=== PATIENT | male | born 1960 | race Caucasian/White ===

== ENCOUNTER → 2019-04-15 | Outpatient (CLI) | payer OTHER ==
[2019-04-11 11:00] VITALS: BP 122/78
[~2019-04-15] MED LIST: CHOL10003 PO; HYDR-2761; HYDR28CR; LISI1TAB3 PO; LORA10CA PO; NORMAL SALINE IV ONE; SIMV20TA3 PO; SINCALIDE IV ONE
--- NOTE | 2019-04-15 10:29 | RAD ---
HEPATOBILIARY SCAN WITH GALLBLADDER EJECTION FRACTION Clinical indications: Abdominal pain. Pancreatitis. COMPARISON: TECHNIQUE: After IV infusion of 5.5 mCi of technetium 99m Choletec, anterior planar images of the upper abdomen were performed in sequential fashion and a time/activity curve was generated. 1.76 mcg of cholecystokinin was given intravenously and a gallbladder ejection fraction was measured and calculated. FINDINGS: Homogeneous uptake is seen throughout the liver. Radiotracer activity is seen within the gallbladder by 5 minutes. Radiotracer activity is seen within the duodenum by 45 minutes. Gallbladder ejection fraction is measured and calculated to be 91%. Normal is greater than 35%. IMPRESSION: Normal hepatobiliary scan with gallbladder ejection fraction of 91% Electronically signed by: Daniel Nash MD (04/15/2019 10:26 AM) [facility]
== END | disposition home or self-care (01) ==
LOC: US 07:14
PROVIDERS: ATTEND Internal Medicine Gastroenterology
DX: K85.90 Acute pancreatitis without necrosis or infection, unspecified (principal); R10.9 Unspecified abdominal pain; Z95.0 Presence of cardiac pacemaker
CPT/HCPCS: 78227; A9537; J2805

== ENCOUNTER 2019-04-18 10:57 | Inpatient (IN) | payer OTHER ==
[~2019-04-18] VITALS: Ht 175.3 cm; Wt 91.2 kg
[~2019-04-18 10:57] MED LIST changes: -NORMAL SALINE IV ONE; -SINCALIDE IV ONE
[2019-04-18] MEDS ORDERED: IV NORMAL SALINE 1000ML BAG 1,000 ML IV SCH (11:13)
[2019-04-18] MEDS ORDERED: FAMOTIDINE 20 MG/2 ML VIAL IVP ONE (11:15)
[2019-04-18] MEDS ORDERED: MORPHINE SULFATE 4 MG/ML VIAL. IV ONE (11:15)
[2019-04-18] MEDS ORDERED: ONDANSETRON PF 4 MG/2 ML VIAL. IV ONE (11:15)
[2019-04-18 11:26] LABS: BASO % 0 % (0-3); EOS # 0.1 x10^3/uL (0.0-0.7); EOS % 1 % (0-3); HEMATOCRIT 48.2 % (39.0-53.0); HEMOGLOBIN 16.3 g/dL (13.0-17.5); LYMPH # 3.2 x10^3/uL (1.0-4.8); LYMPH % 32 % (24-48); MEAN CORPUSCULAR HEMOGLOBIN 29 pg (25-35); MEAN CORPUSCULAR HGB CONC 34 g/dL (31-37); MEAN CORPUSCULAR VOLUME 87 fL (79-100); MONO % 10 % (0-9); NEUT # 5.7 x10^3/uL (1.8-7.7); NEUT % 57 % (31-73); PLATELET COUNT 183 x10^3/uL (140-400); RED BLOOD COUNT 5.55 x10^6/uL (4.30-5.70); RED CELL DISTRIBUTION WIDTH 13.9 % (11.5-14.5)
[2019-04-18 11:39] LABS: CALCIUM 10.6 mg/dL (8.5-10.1); CREATININE 1.6 mg/dL (0.7-1.3); GFR 44.2; POTASSIUM 3.9 mmol/L (3.5-5.1)
--- NOTE | 2019-04-18 11:44 | PHYS DOC ---
Past Medical History Past Medical History: High Cholesterol, Pancreatitis Past Surgical History: Other Additional Past Surgical Histo: bile duct surgery 11 years ago; neuroma left foot Alcohol Use: Rarely Drug Use: None Adult General Chief Complaint Chief Complaint: ABDOMINAL PAIN HPI HPI Patient is a 59 year old male who presents with states this morning he was up and doing things around the house when suddenly he got severe sharp upper abdominal pain that radiates all the way across his abdomen he rates it 10 out of 10. Patient states he vomited once. He has no known drug allergies but he does have a history of idiopathic pancreatitis. Patient states he did not take any medications for his pain before coming. Review of Systems Review of Systems Constitutional: Denies fever or chills [] Eyes: Denies change in visual acuity, redness, or eye pain [] HENT: Denies nasal congestion or sore throat [] Respiratory: Denies cough or shortness of breath [] Cardiovascular: No additional information not addressed in HPI [] GI: RUQ, LUQ abdominal pain, nausea, vomiting, denies bloody stools or diarrhea [] : Denies dysuria or hematuria [] Musculoskeletal: Denies back pain or joint pain [] Integument: Denies rash or skin lesions [] Neurologic: Denies headache, focal weakness or sensory changes [] Endocrine: Denies polyuria or polydipsia [] All other systems were reviewed and found to be within normal limits, except as documented in this note. Current Medications Current Medications Current Medications Medications (Trade) Dose Ordered Sig/Lizandro Start Time Stop Time Status Last Admin Dose Admin Famotidine (Pepcid Vial) 20 mg 1X ONCE 04/18/19 11:15 04/18/19 11:19 DC 04/18/19 11:29 20 MG Hydromorphone HCl (Dilaudid) 0.5 mg 1X ONCE 04/18/19 13:00 04/18/19 13:01 DC 04/18/19 13:02 0.5 MG Iohexol (Omnipaque 300 Mg/ml) 60 ml 1X ONCE 04/18/19 12:15 04/18/19 12:16 DC 04/18/19 12:28 60 ML Lorazepam (Ativan Inj) 1 mg 1X ONCE 04/18/19 12:15 04/18/19 12:16 DC 04/18/19 12:35 1 MG Morphine Sulfate (Morphine Sulfate) 4 mg 1X ONCE 04/18/19 11:15 04/18/19 11:19 DC 04/18/19 11:29 4 MG Ondansetron HCl (Zofran) 4 mg PRN Q8HRS PRN 04/18/19 12:15 04/19/19 12:14 04/18/19 12:57 4 MG Piperacillin Sod/ Tazobactam Sod 3.375 gm/Sodium Chloride 50 ml @ 100 mls/hr 1X ONCE 04/18/19 13:00 04/18/19 13:29 Sodium Chloride 1,000 ml @ 250 mls/hr Q4H 04/18/19 12:14 04/19/19 12:13 Allergies Allergies Allergies Coded Allergies Type Severity Reaction Last Updated Verified No Known Drug Allergies 03/02/16 No Physical Exam Physical Exam Constitutional: Well developed, well nourished, no acute distress, non-toxic appearance. [] HENT: Normocephalic, atraumatic, bilateral external ears normal, oropharynx moist, no oral exudates, nose normal. [] Eyes: PERRLA, EOMI, conjunctiva normal, no discharge. [] Neck: Normal range of motion, no tenderness, supple, no stridor. [] Cardiovascular:Heart rate regular rhythm, no murmur [] Lungs & Thorax: Bilateral breath sounds clear to auscultation [] Abdomen: Bowel sounds normal, soft, no tenderness, no masses, no pulsatile masses. [] Skin: Warm, diaphoretic, no erythema, no rash. [] Back: No tenderness, no CVA tenderness. [] Extremities: No tenderness, no cyanosis, no clubbing, ROM intact, no edema. [] Neurologic: Alert and oriented X 3, normal motor function, normal sensory function, no focal deficits noted. [] Psychologic: Affect normal, judgement normal, mood normal. [] Current Patient Data Vital Signs Vital Signs Date Time Temp Pulse Resp B/P (MAP) Pulse Ox O2 Delivery O2 Flow Rate FiO2 04/18/19 11:00 98.2 102 20 151/77 (101) 98 Room Air 98.2 Lab Values Laboratory Tests Test 04/18/19 11:10 04/18/19 11:20 04/18/19 12:10 Lactic Acid Level 2.7 mmol/L (0.4-2.0) H White Blood Count 10.0 x10^3/uL (4.0-11.0) Red Blood Count 5.55 x10^6/uL (4.30-5.70) Hemoglobin 16.3 g/dL (13.0-17.5) Hematocrit 48.2 % (39.0-53.0) Mean Corpuscular Volume 87 fL (79-100) Mean Corpuscular Hemoglobin 29 pg (25-35) Mean Corpuscular Hemoglobin Concent 34 g/dL (31-37) Red Cell Distribution Width 13.9 % (11.5-14.5) Platelet Count 183 x10^3/uL (140-400) Neutrophils (%) (Auto) 57 % (31-73) Lymphocytes (%) (Auto) 32 % (24-48) Monocytes (%) (Auto) 10 % (0-9) H Eosinophils (%) (Auto) 1 % (0-3) Basophils (%) (Auto) 0 % (0-3) Neutrophils # (Auto) 5.7 x10^3/uL (1.8-7.7) Lymphocytes # (Auto) 3.2 x10^3/uL (1.0-4.8) Monocytes # (Auto) 1.0 x10^3/uL (0.0-1.1) Eosinophils # (Auto) 0.1 x10^3/uL (0.0-0.7) Basophils # (Auto) 0.0 x10^3/uL (0.0-0.2) Sodium Level 143 mmol/L (136-145) Potassium Level 3.9 mmol/L (3.5-5.1) Chloride Level 102 mmol/L (98-107) Carbon Dioxide Level 32 mmol/L (21-32) Anion Gap 9 (6-14) Blood Urea Nitrogen 25 mg/dL (8-26) Creatinine 1.6 mg/dL (0.7-1.3) H Estimated GFR (Cockcroft-Gault) 44.2 BUN/Creatinine Ratio 16 (6-20) Glucose Level 127 mg/dL (70-99) H Calcium Level 10.6 mg/dL (8.5-10.1) H Total Bilirubin 0.5 mg/dL (0.2-1.0) Aspartate Amino Transferase (AST) 21 U/L (15-37) Alanine Aminotransferase (ALT) 48 U/L (16-63) Alkaline Phosphatase 53 U/L (46-116) Troponin I Quantitative < 0.017 ng/mL (0.000-0.055) Total Protein 7.9 g/dL (6.4-8.2) Albumin 4.7 g/dL (3.4-5.0) Albumin/Globulin Ratio 1.5 (1.0-1.7) Lipase 91541 U/L (73-393) H Ethyl Alcohol Level < 10 mg/dL (0-10) Urine Collection Type Void Urine Color Yellow Urine Clarity Clear Urine pH 5.0 Urine Specific [place] 1.015 Urine Protein 30 mg/dL (NEG-TRACE) Urine Glucose (UA) Negative mg/dL (NEG) Urine Ketones (Stick) Negative mg/dL (NEG) Urine Blood Negative (NEG) Urine Nitrite Negative (NEG) Urine Bilirubin Negative (NEG) Urine Urobilinogen Dipstick 0.2 mg/dL (0.2 mg/dL) Urine Leukocyte Esterase Negative (NEG) Urine RBC 3-5 /HPF (0-2) Urine WBC 1-4 /HPF (0-4) Urine Bacteria Few /HPF (0-FEW) Urine Hyaline Casts Many /HPF Urine Mucus Marked /LPF Urine Opiates Screen Pos (NEG) Urine Methadone Screen Neg (NEG) Urine Barbiturates Neg (NEG) Urine Phencyclidine Screen Neg (NEG) Urine Amphetamine/Methamphetamine Neg (NEG) Urine Benzodiazepines Screen Neg (NEG) Urine Cocaine Screen Neg (NEG) Urine Cannabinoids Screen Neg (NEG) Urine Ethyl Alcohol Neg (NEG) Laboratory Tests 04/18/19 11:20 Laboratory Tests 04/18/19 11:20 EKG EKG Sinus Rhythm and no STEMI[] Interpretation Time: [address] Mathews Radiology/Procedures Radiology/Procedures [] Impressions: [facility] [address] [place] [address] IMAGING REPORT Signed PATIENT: SUSHANT HAMPTON ACCOUNT: [id number] : 1960 LOCATION: ER AGE: 59 SEX: M EXAM STATUS: REG ER ORD. PHYSICIAN: DENISSE CHAVIRA APRN REASON: upper abd pain, hx pancreatitis PROCEDURE: CT ABD PELV W/ IV CONTRST ONLY EXAM: CT Abdomen and Pelvis with IV contrast CLINICAL HISTORY: upper abd pain, hx pancreatitis COMPARISON: none TECHNIQUE: Helical CT of the abdomen and pelvis was performed following the administration of intravenous contrast. Axial, coronal and sagittal reformatted images were generated. PQRS compliance statement - One or more of the following individualized dose reduction techniques were utilized for this study: 1. Automated exposure control 2. Adjustment of the mA and/or kV according to patient size 3. Use of iterative reconstruction technique FINDINGS: Lower chest: Lung bases are clear. No pleural effusion is seen. Abdomen and Pelvis: Hepatic hypoattenuation may be seen with hepatic steatosis. Gallbladder is normal. No biliary ductal dilatation. Spleen is unremarkable. Adrenal glands are normal. Symmetric nephrograms. Nonobstructing 4 mm right lower pole renal calculus. No hydronephrosis. No hydroureter. Mild thickening of the bladder may be seen with cystitis. Diffuse enlargement and edematous appearance of the pancreas is consistent with acute pancreatitis. No definite loculated fluid collection. Diffuse homogenous enhancement of the pancreas. Moderate colonic stool content is seen. Appendix is normal. No small or large bowel dilatation. Bones: Osseous structures are grossly stable. No definite aggressive osseous lesion. Degenerative changes most prominent at the lumbosacral junction. IMPRESSION: 1. Acute pancreatitis without evidence for loculated fluid collection or pancreatic necrosis/ischemia. Electronically signed by: Amrit Villalba MD (04/18/2019 12:58 PM) [facility] DICTATED and SIGNED BY: AMRIT VILLALBA MD DATE: 04/18/19 0399 Course & Med Decision Making Course & Med Decision Making Patient is a 59 year old male who presents with states this morning he was up and doing things around the house when suddenly he got severe sharp upper abdominal pain that radiates all the way across his abdomen he rates it 10 out of 10. Patient states he vomited once. He has no known drug allergies but he does have a history of idiopathic pancreatitis. Patient states he did not take any medications for his pain before coming. Abdomen is soft and nontender. Patient is diaphoretic and rolling back and forth in the bed and moaning. Alert and oriented. Answers questions appropriately. Lungs clear to auscultation in all lobes. Skin pink warm and moist. Mucus membranes moist. No extremity swelling. Denies soa, chest pain, dizziness, numbness or tingling, drug use, etoh, diarrhea. Lipase 79,714. Dr Osuna called for admission. Patient given 4mg morphine, and a total of 3mg dilaudid. Zosyn is started. CT abdomen pelvis shows 1. Acute samuel creatitis without evidence for loculated fluid collection or pancreatic necrosis/ischemia. Dragon Disclaimer Dragon Disclaimer This electronic medical record was generated, in whole or in part, using a voice recognition dictation system. Departure Departure Impression: Primary Impression: Pancreatitis Disposition: ADMITTED INPATIENT Admitting Physician: CR Condition: GOOD Referrals: UNKNOWN PCP NAME (PCP) Problem Qualifiers Primary Impression: Pancreatitis Chronicity: acute Pancreatitis type: idiopathic Acute pancreatitis complication: unspecified Qualified Codes: K85.00 - Idiopathic acute pancreatitis without necrosis or infection DENISSE CHAVIRA FINISHING [employer] OPERATOR Apr 18, 2019 11:44
[2019-04-18] MEDS ORDERED: HYDROmorphone 2 MG/ML VIAL IV ONE ×3 (11:45→13:00)
[2019-04-18 11:46] LABS: ALBUMIN 4.7 g/dL (3.4-5.0); ALBUMIN/GLOBULIN RATIO 1.5 (1.0-1.7); TOTAL BILIRUBIN 0.5 mg/dL (0.2-1.0); TOTAL PROTEIN 7.9 g/dL (6.4-8.2)
[2019-04-18] MEDS ORDERED: IOHEXOL 300 MG/ML 100ML VIAL. IV ONE (12:15)
[2019-04-18] MEDS ORDERED: IV NORMAL SALINE 1000ML BAG 1,000 ML IV ONE (12:15)
[2019-04-18 12:20] LABS: BILIRUBIN,URINE NEGATIVE (NEG); CLARITY,URINE CLEAR; COLOR,URINE YELLOW; NITRITE,URINE NEGATIVE (NEG); PROTEIN,URINE 30 mg/dL (NEG-TRACE); UROBILINOGEN,URINE 0.2 mg/dL (0.2 mg/dL)
[2019-04-18 12:29] LABS: BARBITURATES NEG (NEG); BENZODIAZEPINES NEG (NEG); CANNABINOIDS NEG (NEG); COCAINE NEG (NEG); METHADONE NEG (NEG); OPIATES POS (NEG); PHENCYCLIDINE NEG (NEG)
[2019-04-18 12:30] LABS: AMPHETAMINE/METHAMPHETAMINE NEG (NEG)
[2019-04-18 12:36] LABS: BACTERIA,URINE FEW /HPF (0-FEW); HYALINE CASTS, URINE MANY /HPF
--- NOTE | 2019-04-18 12:47 | EKG ---
[facility] [address] [place] [address] Test Date: 2019-04-18 Test Time: 12:18:57 Pat Name: SUSHANT HAMPTON Department: Room: Gender: M Whizzer Hand: : 1960 Requested By: DENISSE CHAVIRA Order Number: [id number] Reading MD: Measurements Intervals Stanley Rate: 90 P: 48 LA: 140 QRS: 32 QRSD: 96 T: 19 QT: 364 QTc: 449 Interpretive Statements SINUS RHYTHM NORMAL ECG RI6.01 No previous ECG available for comparison
[2019-04-18] MEDS: ONDANSETRON PF 4 MG/2 ML VIAL. IV PRN (12:57)
[2019-04-18] MEDS ORDERED: PIPERACILLIN/TAZOBACTAM 3.375 GM in IV NORMAL SALINE 50ML 50 ML IV ONE (13:00)
--- NOTE | 2019-04-18 13:01 | RAD ---
EXAM: CT Abdomen and Pelvis with IV contrast CLINICAL HISTORY: upper abd pain, hx pancreatitis COMPARISON: none TECHNIQUE: Helical CT of the abdomen and pelvis was performed following the administration of intravenous contrast. Axial, coronal and sagittal reformatted images were generated. PQRS compliance statement - One or more of the following individualized dose reduction techniques were utilized for this study: 1. Automated exposure control 2. Adjustment of the mA and/or kV according to patient size 3. Use of iterative reconstruction technique FINDINGS: Lower chest: Lung bases are clear. No pleural effusion is seen. Abdomen and Pelvis: Hepatic hypoattenuation may be seen with hepatic steatosis. Gallbladder is normal. No biliary ductal dilatation. Spleen is unremarkable. Adrenal glands are normal. Symmetric nephrograms. Nonobstructing 4 mm right lower pole renal calculus. No hydronephrosis. No hydroureter. Mild thickening of the bladder may be seen with cystitis. Diffuse enlargement and edematous appearance of the pancreas is consistent with acute pancreatitis. No definite loculated fluid collection. Diffuse homogenous enhancement of the pancreas. Moderate colonic stool content is seen. Appendix is normal. No small or large bowel dilatation. Bones: Osseous structures are grossly stable. No definite aggressive osseous lesion. Degenerative changes most prominent at the lumbosacral junction. IMPRESSION: 1. Acute pancreatitis without evidence for loculated fluid collection or pancreatic necrosis/ischemia. Electronically signed by: Amrit Harrell MD (04/18/2019 12:58 PM) [facility]
[2019-04-18] MEDS: IV NORMAL SALINE 1000ML BAG 1,000 ML IV SCH ×3 (13:03→20:45)
[2019-04-18] MEDS: HYDROmorphone 2 MG/ML VIAL IV PRN ×6 (15:26→23:27)
--- NOTE | 2019-04-18 16:11 | HP ---
ADMIT DATE: 04/18/2019 CHIEF COMPLAINT: Abdominal pain. HISTORY OF PRESENT ILLNESS: The patient is a pleasant 59-year-old male, who has a known history of idiopathic pancreatitis. Once again, he presents with abdominal pain. We checked a lipase level, it is greater than 79,000, that is the highest ever we have seen. Clinically, he certainly seems to have severe pancreatitis. We have given him several injections of morphine and Dilaudid. He still rates his pain at 10/10. He has now started to vomit here in the ER. I discussed the case with ER physician. We are going to admit the patient and consult GI. PAST MEDICAL HISTORY: Previous idiopathic pancreatitis, hyperlipidemia, hypertension. ALLERGIES: None. FAMILY HISTORY: Hypertension. SOCIAL HISTORY: He states he does not drink, smoke or take drugs. He is . MEDICATIONS: Reviewed, please refer to the MRAD. REVIEW OF SYSTEMS: GENERAL: No history of weight change, weakness or fevers. SKIN: No bruising, hair changes or rashes. EYES: No blurred, double or loss of vision. NOSE AND THROAT: No history of nosebleeds, hoarseness or sore throat. HEART: No history of palpitations, chest pain or shortness of breath on exertion. LUNGS: Denies cough, hemoptysis, wheezing or shortness of breath. GASTROINTESTINAL: He complains of abdominal pain. GENITOURINARY: No history of frequency, urgency, hesitancy or nocturia. NEUROLOGIC: Denies history of numbness, tingling, tremor or weakness. PSYCHIATRIC: No history of panic, anxiety or depression. ENDOCRINE: No history of heat or cold intolerance, polyuria or polydipsia. EXTREMITIES: Denies muscle weakness, joint pain, pain on walking or stiffness. PHYSICAL EXAMINATION: VITALS: Within normal limits and are stable. GENERAL: No apparent distress. Alert and oriented. HEENT: Head is normocephalic, atraumatic, pupils were equally round and reactive to light and accommodation. NECK: Supple, no JVD, no thyromegaly was noted. LUNGS: Clear to auscultation in all lung dsouza without rhonchi or wheezing. HEART: RRR, S1, S2 present. Peripheral pulses intact, no obvious murmurs were noted. ABDOMEN: Very tender with decreased bowel sounds. EXTREMITIES: Without any cyanosis, clubbing, or edema. Pedal pulses intact, Homans sign is negative. NEUROLOGIC: Normal speech, normal tone. A and O x 3, moves all extremities, no obvious focal deficits. PSYCHIATRIC: Normal affect, normal mood. Stable. SKIN: No ulcerations or rashes, good skin turgor, no jaundice. VASCULAR: Good capillary refill, neurovascular bundle appears to be intact. ASSESSMENT AND PLAN: Severe pancreatitis. The patient is being admitted. We will check daily lipase levels, IV fluids, p.r.n. Zofran and p.r.n. Dilaudid. Consult GI. Home meds, Deep venous thrombosis prophylaxis, n.p.o. PROGNOSIS: Guarded. SURESH HUNTLEY DO DR: YANN/francois JOB#: [id number] / [id number]
[2019-04-18 16:13] VITALS: BP 139/97
[2019-04-18 19:05] VITALS: BP 167/110
[2019-04-18 23:05] VITALS: BP 141/102
[2019-04-19] MEDS: IV NORMAL SALINE 1000ML BAG 1,000 ML IV SCH ×6 (00:14→21:32)
[2019-04-19] MEDS: HYDROmorphone 2 MG/ML VIAL IV PRN ×11 (02:25→21:31)
[2019-04-19] MEDS: ONDANSETRON PF 4 MG/2 ML VIAL. IV PRN ×2 (02:28→10:28)
[2019-04-19 03:05] VITALS: BP 133/92
[2019-04-19 07:10] VITALS: BP 130/86
[2019-04-19 11:00] VITALS: BP 126/81
--- NOTE | 2019-04-19 13:13 | PDOC ---
G I PROGRESS NOTE Reason for Follow-up Pancreatitis Subjective Nausea persists Physical Exam Lungs clear CV S1 S2 ABD decreased BS, +epigastric tenderness to palpation Review of Relevant I have reviewed the following items annabella (where applicable) has been applied. Labs Laboratory Tests Test 04/18/19 11:10 04/18/19 11:20 04/18/19 12:10 04/19/19 00:10 Lactic Acid Level 2.7 mmol/L (0.4-2.0) 2.6 mmol/L (0.4-2.0) White Blood Count 10.0 x10^3/uL (4.0-11.0) Red Blood Count 5.55 x10^6/uL (4.30-5.70) Hemoglobin 16.3 g/dL (13.0-17.5) Hematocrit 48.2 % (39.0-53.0) Mean Corpuscular Volume 87 fL (79-100) Mean Corpuscular Hemoglobin 29 pg (25-35) Mean Corpuscular Hemoglobin Concent 34 g/dL (31-37) Red Cell Distribution Width 13.9 % (11.5-14.5) Platelet Count 183 x10^3/uL (140-400) Neutrophils (%) (Auto) 57 % (31-73) Lymphocytes (%) (Auto) 32 % (24-48) Monocytes (%) (Auto) 10 % (0-9) Eosinophils (%) (Auto) 1 % (0-3) Basophils (%) (Auto) 0 % (0-3) Neutrophils # (Auto) 5.7 x10^3/uL (1.8-7.7) Lymphocytes # (Auto) 3.2 x10^3/uL (1.0-4.8) Monocytes # (Auto) 1.0 x10^3/uL (0.0-1.1) Eosinophils # (Auto) 0.1 x10^3/uL (0.0-0.7) Basophils # (Auto) 0.0 x10^3/uL (0.0-0.2) Sodium Level 143 mmol/L (136-145) Potassium Level 3.9 mmol/L (3.5-5.1) Chloride Level 102 mmol/L (98-107) Carbon Dioxide Level 32 mmol/L (21-32) Anion Gap 9 (6-14) Blood Urea Nitrogen 25 mg/dL (8-26) Creatinine 1.6 mg/dL (0.7-1.3) Estimated GFR (Cockcroft-Gault) 44.2 BUN/Creatinine Ratio 16 (6-20) Glucose Level 127 mg/dL (70-99) Calcium Level 10.6 mg/dL (8.5-10.1) Total Bilirubin 0.5 mg/dL (0.2-1.0) Aspartate Amino Transf (AST/SGOT) 21 U/L (15-37) Alanine Aminotransferase (ALT/SGPT) 48 U/L (16-63) Alkaline Phosphatase 53 U/L (46-116) Troponin I Quantitative < 0.017 ng/mL (0.000-0.055) Total Protein 7.9 g/dL (6.4-8.2) Albumin 4.7 g/dL (3.4-5.0) Albumin/Globulin Ratio 1.5 (1.0-1.7) Lipase 19547 U/L (73-393) Ethyl Alcohol Level < 10 mg/dL (0-10) Urine Collection Type Void Urine Color Yellow Urine Clarity Clear Urine pH 5.0 Urine Specific [place] 1.015 Urine Protein 30 mg/dL (NEG-TRACE) Urine Glucose (UA) Negative mg/dL (NEG) Urine Ketones (Stick) Negative mg/dL (NEG) Urine Blood Negative (NEG) Urine Nitrite Negative (NEG) Urine Bilirubin Negative (NEG) Urine Urobilinogen Dipstick 0.2 mg/dL (0.2 mg/dL) Urine Leukocyte Esterase Negative (NEG) Urine RBC 3-5 /HPF (0-2) Urine WBC 1-4 /HPF (0-4) Urine Bacteria Few /HPF (0-FEW) Urine Hyaline Casts Many /HPF Urine Mucus Marked /LPF Urine Opiates Screen Pos (NEG) Urine Methadone Screen Neg (NEG) Urine Barbiturates Neg (NEG) Urine Phencyclidine Screen Neg (NEG) Urine Amphetamine/Methamphetamine Neg (NEG) Urine Benzodiazepines Screen Neg (NEG) Urine Cocaine Screen Neg (NEG) Urine Cannabinoids Screen Neg (NEG) Urine Ethyl Alcohol Neg (NEG) Test 04/19/19 08:02 Lactic Acid Level 1.6 mmol/L (0.4-2.0) Lipase 8410 U/L (73-393) Laboratory Tests Test 04/19/19 00:10 04/19/19 08:02 Lactic Acid Level 2.6 mmol/L (0.4-2.0) 1.6 mmol/L (0.4-2.0) Lipase 8410 U/L (73-393) Medications Current Medications Sodium Chloride 1,000 ml @ 1,000 mls/hr Q1H IV Last administered on 04/18/19 11:29; Start 04/18/19 at 11:13; Stop 04/18/19 at 12:12; Status DC Ondansetron HCl (Zofran) 4 mg 1X ONCE IV Last administered on 04/18/19at 11:29; Start 04/18/19 at 11:15; Stop 04/18/19 at 11:19; Status DC Famotidine (Pepcid Vial) 20 mg 1X ONCE IVP Last administered on 04/18/19 11:29; Start 04/18/19 at 11:15; Stop 04/18/19 at 11:19; Status DC Morphine Sulfate (Morphine Sulfate) 4 mg 1X ONCE IV Last administered on 04/18/19at 11:29; Start 04/18/19 at 11:15; Stop 04/18/19 at 11:19; Status DC Hydromorphone HCl (Dilaudid) 1 mg 1X ONCE IV Last administered on 04/18/19at 11:45; Start 04/18/19 at 11:45; Stop 04/18/19 at 11:46; Status DC Hydromorphone HCl (Dilaudid) 2 mg 1X ONCE IV Last administered on 04/18/19at 12:11; Start 04/18/19 at 12:15; Stop 04/18/19 at 12:16; Status DC Sodium Chloride 1,000 ml @ 1,000 mls/hr 1X ONCE IV Last administered on 04/18/19at 12:11; Start 04/18/19 at 12:15; Stop 04/18/19 at 13:14; Status DC Lorazepam (Ativan Inj) 1 mg 1X ONCE IV Last administered on 04/18/19at 12:35; Start 04/18/19 at 12:15; Stop 04/18/19 at 12:16; Status DC Piperacillin Sod/ Tazobactam Sod 3.375 gm/Sodium Chloride 50 ml @ 100 mls/hr 1X ONCE IV Last administered on 04/18/19 13:16; Start 04/18/19 at 13:00; Stop 04/18/19 at 13:29; Status DC Iohexol (Omnipaque 300 Mg/ml) 60 ml 1X ONCE IV Last administered on 04/18/19at 12:28; Start 04/18/19 at 12:15; Stop 04/18/19 at 12:16; Status DC Ondansetron HCl (Zofran) 4 mg PRN Q8HRS PRN IV NAUSEA/VOMITING Last administered on 04/19/19at 10:30; Start 04/18/19 at 12:15; Stop 04/19/19 at 12:14; Status DC Sodium Chloride 1,000 ml @ 250 mls/hr Q4H IV Last administered on 04/19/19at 07:23; Start 04/18/19 at 12:14; Stop 04/19/19 at 12:13; Status DC Hydromorphone HCl (Dilaudid) 0.5 mg 1X ONCE IV Last administered on 04/18/19at 13:02; Start 04/18/19 at 13:00; Stop 04/18/19 at 13:01; Status DC Hydromorphone HCl (Dilaudid) 2 mg PRN Q1HR PRN IV PAIN Last administered on 04/19/19at 12:33; Start 04/18/19 at 15:30 Sodium Chloride 1,000 ml @ 250 mls/hr Q4H IV Last administered on 04/19/19at 12 :27; Start 04/19/19 at 12:30 Active Scripts Active Reported Lisinopril-Hctz 10-12.5 Mg Tab (Lisinopril/Hydrochlorothiazide) 1 Each Tablet 1 Tab PO DAILY Vitamin D3 (Cholecalciferol (Vitamin D3)) 1,000 Unit Tablet 1 Tab PO DAILY Hydrocodone-Apap 5-325 (Hydrocodone Bit/Acetaminophen) 1 Each Tablet Simvastatin 20 Mg Tablet 20 Mg PO DAILY Anti-Itch (Hydrocortisone) 28 Gm Cream..g. Claritin (Loratadine) 10 Mg Capsule PO PRN DAILY Vitals/I & O Vital Sign - Last 24 Hours 04/18/19 04/18/19 04/18/19 04/18/19 13:17 14:17 15:17 16:01 Pulse 94 92 92 Resp 20 18 18 B/P (MAP) 161/96 (117) 144/96 (112) 138/79 (98) Pulse Ox 96 96 96 O2 Delivery Room Air Room Air Room Air Room Air 04/18/19 04/18/19 04/18/19 04/18/19 16:13 16:27 17:06 17:16 Temp 98.4 98.4 Pulse 111 Resp 18 B/P (MAP) 139/97 (111) O2 Delivery Room Air Room Air Room Air Room Air 04/18/19 04/18/19 04/18/19 04/18/19 17:30 18:40 18:55 19:05 Temp 98.9 98.9 Pulse 106 Resp 16 B/P (MAP) 167/110 (129) Pulse Ox 95 O2 Delivery Room Air Room Air Room Air Room Air 04/18/19 04/18/19 04/18/19 04/18/19 20:00 20:28 20:30 22:40 Resp 16 16 16 Pulse Ox 96 96 96 O2 Delivery Room Air Room Air Room Air Room Air 04/18/19 04/18/19 04/19/19 04/19/19 23:05 23:27 00:01 02:28 Temp 99.4 99.4 Pulse 109 Resp 16 16 16 18 B/P (MAP) 141/102 (115) Pulse Ox 94 96 96 96 O2 Delivery Room Air Room Air Room Air Room Air 04/19/19 04/19/19 04/19/19 04/19/19 03:05 03:20 05:57 06:41 Temp 99.6 99.6 Pulse 129 Resp 16 18 16 B/P (MAP) 133/92 (106) Pulse Ox 91 96 91 91 O2 Delivery Room Air Room Air Room Air Room Air 04/19/19 04/19/19 04/19/19 04/19/19 07:10 07:23 07:48 08:24 Temp 99.5 99.5 Pulse 93 Resp 18 B/P (MAP) 130/86 (101) Pulse Ox 92 O2 Delivery Room Air Room Air Room Air Room Air 04/19/19 04/19/19 04/19/19 04/19/19 08:24 09:23 09:24 10:11 O2 Delivery Room Air Room Air Room Air Room Air 04/19/19 04/19/19 04/19/19 04/19/19 10:30 11:00 11:26 12:33 Temp 97.6 97.6 Pulse 96 Resp 18 B/P (MAP) 126/81 (96) Pulse Ox 92 O2 Delivery Room Air Room Air Room Air Room Air Intake and Output 04/18/19 04/18/19 04/19/19 15:00 23:00 07:00 Intake Total 2050 ml 100 ml Balance 2050 ml 100 ml Problem List Problems Medical Problems: (1) Pancreatitis Status: Acute Assessment Recurrent pancreatitis- etiology unclear, microlithiasis leads differential despite unhelpful imaging, MRI as o/p was planeed for Saturday, await Igg4 and lipd panel, if sudies unhelpful, surgical consult for possible lap evan and/or ERCP with JOAQUIM at [facility] may be nneded EDUARDO FAULKNER MD Apr 19, 2019 13:13
--- NOTE | 2019-04-19 13:17 | PDOC ---
[facility] PROGRESS NOTE Chief Complaint Chief Complaint Idiopathic pancreatitis (lipase level of 79,714 at admission, now 8,410) Abdominal pain N/V Hyperlipidemia HTN History of Present Illness History of Present Illness 04/19/19 Pt seen/examined at bedside DW pt and Pt states he is feeling much better than when he arrived, but it still finding it hard to get comfortable Vitals/I&O Vitals/I&O: Vital Signs Date Time Temp Pulse Resp B/P (MAP) Pulse Ox O2 Delivery O2 Flow Rate FiO2 04/19/19 12:33 Room Air 04/19/19 11:00 97.6 96 18 126/81 (96) 92 97.6 I & O 04/18/19 04/18/19 04/19/19 15:00 23:00 07:00 Intake Total 2050 ml 100 ml Balance 2050 ml 100 ml Physical Exam General: Alert, Oriented X3, Cooperative, mild distress Heart: Regular rate, Normal S1, Normal S2 Lungs: Clear Abdomen: Other (Abd pain) Extremities: No clubbing, No cyanosis Skin: No rashes, No breakdown Labs Labs: Laboratory Tests Test 04/19/19 00:10 04/19/19 08:02 Lactic Acid Level 2.6 mmol/L (0.4-2.0) 1.6 mmol/L (0.4-2.0) Lipase 8410 U/L (73-393) Review of Systems Review of Systems: CO abd pain No confusion Assessment and Plan Assessmemt and Plan Problems Medical Problems: (1) Pancreatitis Status: Acute Assessment Idiopathic pancreatitis (lipase level of 79,714 at admission, now 8,410) Abdominal pain N/V Hyperlipidemia HTN Plan IV dilaudid for pain IV fluids Trend lipase DVT prophylaxis Home meds Labs PT/OT Full code Comment Review of Relevant I have reviewed the following items annabella (where applicable) has been applied. Medications: Current Medications Medications (Trade) Dose Ordered Sig/Lizandro Route PRN Reason Start Time Stop Time Status Last Admin Dose Admin Hydromorphone HCl (Dilaudid) 2 mg PRN Q1HR PRN IV PAIN 04/18/19 15:30 04/19/19 12:33 Sodium Chloride 1,000 ml @ 250 mls/hr Q4H IV 04/19/19 12:30 04/19/19 12:27 SURESH HUNTLEY III DO Apr 19, 2019 13:17
[2019-04-19 13:29] LABS: CHOLESTEROL/HDL RATIO 4.3
[2019-04-19 13:41] LABS: ALBUMIN 3.6 g/dL (3.4-5.0); ALBUMIN/GLOBULIN RATIO 1.4 (1.0-1.7); CALCIUM 8.3 mg/dL (8.5-10.1); CREATININE 1.2 mg/dL (0.7-1.3); GFR 61.6; POTASSIUM 4.9 mmol/L (3.5-5.1); TOTAL BILIRUBIN 0.6 mg/dL (0.2-1.0); TOTAL PROTEIN 6.2 g/dL (6.4-8.2)
[2019-04-19 15:09] VITALS: BP 160/95
[2019-04-19 19:05] VITALS: BP 138/92
[2019-04-19] MEDS ORDERED: methylPREDNISolone SOD SUCC PF 40 MG/ML VIAL. IV ONE (19:30)
[2019-04-19] MEDS ORDERED: ALBUTEROL SULFATE 2.5 MG/3 ML NEBU. NEB PRN (19:30)
[2019-04-19] MEDS: BUDESONIDE 0.5 MG/2 ML NEBU. NEB SCH (20:48)
[2019-04-19] MEDS: IPRATROPIUM BROMIDE 0.5 MG/2.5 ML NEBU. NEB SCH (20:48)
[2019-04-19 23:05] VITALS: BP 145/92
[2019-04-20] MEDS: IV NORMAL SALINE 1000ML BAG 1,000 ML IV SCH ×3 (01:54→11:37)
[2019-04-20] MEDS: HYDROmorphone 2 MG/ML VIAL IV PRN ×8 (01:54→19:48)
--- NOTE | 2019-04-20 02:14 | NUR ---
pt is wheezing, took O2 sat at around 2100 O2sat was only 85% at RA, placed pt on O2 at 2L nc and provided education regarding O2 supplement, pt verbalized understanding, at around 2300 platform consultant reported that pt O2 was not on and O2sat was 87% RA, placed back O2 and reeducated pt, at 0200 rounds O2 was on the floor and pt noted RR was 26, placed back O2 and rechecked O2 sat, and reminded pt to keep it on. Will continue to monitor pt.
[2019-04-20 03:05] VITALS: BP 147/97
[2019-04-20 05:33] LABS: CALCIUM 8.2 mg/dL (8.5-10.1); CREATININE 1.2 mg/dL (0.7-1.3); GFR 61.6; POTASSIUM 4.6 mmol/L (3.5-5.1)
[2019-04-20 07:00] VITALS: BP 155/94
[2019-04-20] MEDS: ONDANSETRON PF 4 MG/2 ML VIAL. IV PRN ×2 (08:26→13:46)
--- NOTE | 2019-04-20 08:45 | NUR ---
Scan for dilaudid at 0826 did not save, entered manually.
[2019-04-20] MEDS: IPRATROPIUM BROMIDE 0.5 MG/2.5 ML NEBU. NEB SCH ×4 (09:15→20:32)
[2019-04-20] MEDS: BUDESONIDE 0.5 MG/2 ML NEBU. NEB SCH ×2 (09:15→20:33)
--- NOTE | 2019-04-20 10:51 | NUR ---
SS following for discharge planning. SS reviewed pt chart. Pt is from home with spouse and is currently requiring oxygen. No discharge needs noted at this time. SS will continue to follow for discharge planning.
--- NOTE | 2019-04-20 10:55 | PDOC ---
Subjective: Subjective: Pain is better - a little different than usual - the upper abd pain under ribs has resolved but now has some discomfort to left abdomen/LLQ. Wants broth. Thinks he had an MRI at some point. Says he "cleared his lungs out." Objective: Objective: Getting Dilaudid. Pulm asked to see for wheezing. Some tachycardia noted. Normal triglycerides and CA19-9. IGG4 pending. Vital Signs: Vital Signs Date Time Temp Pulse Resp B/P (MAP) Pulse Ox O2 Delivery O2 Flow Rate FiO2 04/20/19 09:17 96 Nasal Cannula 2.0 04/20/19 09:01 20 04/20/19 07:00 97.8 107 155/94 (114) 97.8 Labs: Laboratory Tests Test 04/20/19 04:00 Sodium Level 143 mmol/L Potassium Level 4.6 mmol/L Chloride Level 109 mmol/L Carbon Dioxide Level 27 mmol/L Anion Gap 7 Blood Urea Nitrogen 26 mg/dL Creatinine 1.2 mg/dL Estimated GFR (Cockcroft-Gault) 61.6 Glucose Level 146 mg/dL Calcium Level 8.2 mg/dL Lipase 4427 U/L Imaging: CT A/P 04/18 IMPRESSION: 1. Acute pancreatitis without evidence for loculated fluid collection or pancreatic necrosis/ischemia. HIDA 04/15 IMPRESSION: Normal hepatobiliary scan with gallbladder ejection fraction of 91%. US 04/10 IMPRESSION: 1. Fatty infiltration of the liver. 2. Gallbladder is normal. PE: GEN: NAD LUNGS: NC HEART: mildly tachycardic ABD: quiet BS, LLQ discomfort, some distention NEURO/PSYCH: A & O �3 A/P: Recurrent pancreatitis - unclear etiology Abd pain -- Reviewed w/ Dr. Wagner re: pt's request for liquids - continued ice chips for now, consider trial of clears tomorrow. ?MRCP tomorrow - scheduled as outpt Note moderate stool content on CT - consider Relistor. QUAN HOWARD Apr 20, 2019 10:55
[2019-04-20 11:00] VITALS: BP 154/102
--- NOTE | 2019-04-20 11:56 | CONS ---
DATE OF CONSULTATION: PULMONARY CONSULTATION ATTENDING PHYSICIAN: Laila Osuna DO REASON FOR CONSULTATION: Dyspnea and bronchospasm. HISTORY OF PRESENT ILLNESS: The patient is a 59-year-old male who has known history of idiopathic pancreatitis. He presented to the hospital with abdominal pain and had a relapse of his pancreatitis. His lipase level was 79,000. He is getting better. He received IV fluids. He was noted to have bronchospasm yesterday and as a result, I have been asked to see him for further evaluation. He says he does not smoke cigarettes and does not have any reactive airway disease. No chest pains, no headaches, no nausea or vomiting. No leg edema. His CT abdomen with lower sections of the lungs was normal on the . PAST MEDICAL HISTORY: Idiopathic pancreatitis, history of hyperlipidemia, and hypertension. ALLERGIES: None. FAMILY HISTORY: Hypertension. SOCIAL HISTORY: Does not smoke and does not drink alcohol. MEDICATIONS: Reviewed as listed in the MRAD. REVIEW OF SYSTEMS: Twelve-point systems obtained. Pertinent positives discussed in my history of present illness, otherwise noncontributory. All systems that were negative were reviewed as well. PHYSICAL EXAMINATION: VITAL SIGNS: Reviewed. Blood pressure on the high side 154/102, pulse ox 92% on 2 liters, and afebrile. HEENT: Sclerae are nonicteric. NECK: Supple. LUNGS: With faint expiratory wheezes. CARDIOVASCULAR: With a regular rate. ABDOMEN: Soft. EXTREMITIES: With no pitting edema. LABORATORY DATA: Reviewed. His lipase is trending down. BUN and creatinine 26 and 1.2. White cell count 10.0, hemoglobin 16.3, and platelets 183. IMPRESSION: 1. Dyspnea related to acute bronchospasm. Could be related to reactive airway disease. He has no known history of asthma or chronic obstructive pulmonary disease. The possibility of fluid overload needs to be considered as well. The patient does have hypertension and diastolic heart failure in the setting of IV fluid resuscitation can be other etiology. 2. Acute idiopathic pancreatitis. This is a relapse. He has known history of idiopathic pancreatitis. 3. No history of tobacco use. RECOMMENDATIONS: 1. Continue with present bronchodilators including Pulmicort. 2. Obtain chest x-ray to make sure there is no congestive heart failure. 3. Monitor lipase level. 4. We will follow along with you. Discussed with the patient's . ALBERTO RENO MD DR: Sunny JOB#: [id number] / [id number]
--- NOTE | 2019-04-20 13:35 | NUR ---
Earl in MRI notified of free text nursing order by Tonya THOMPSON APRN to cancell MRCP scheduled as outpatient for tomorrow.
--- NOTE | 2019-04-20 13:59 | PDOC ---
[facility] PROGRESS NOTE Chief Complaint Chief Complaint Idiopathic pancreatitis (lipase level of 79,714 at admission, now 8,410) Abdominal pain N/V Hyperlipidemia HTN History of Present Illness History of Present Illness 04/20/19 Pt seen/examined at bedside Pt talking and without any acute distress 04/19/19 Pt seen/examined at bedside DW pt and Pt states he is feeling much better than when he arrived, but it still finding it hard to get comfortable Vitals/I&O Vitals/I&O: Vital Signs Date Time Temp Pulse Resp B/P (MAP) Pulse Ox O2 Delivery O2 Flow Rate FiO2 04/20/19 13:47 20 Nasal Cannula 04/20/19 12:09 93 2.0 04/20/19 11:00 99.5 112 154/102 (119) 99.5 I & O 04/19/19 04/19/19 04/20/19 14:59 22:59 06:59 Intake Total 0 ml 0 ml 50 ml Output Total 200 ml Balance 0 ml 0 ml -150 ml Physical Exam General: Alert, Oriented X3, Cooperative, mild distress Heart: Regular rate, Normal S1, Normal S2 Lungs: Clear Abdomen: Other (Abd pain) Extremities: No clubbing, No cyanosis Skin: No rashes, No breakdown Labs Labs: Laboratory Tests Test 04/20/19 04:00 Sodium Level 143 mmol/L (136-145) Potassium Level 4.6 mmol/L (3.5-5.1) Chloride Level 109 mmol/L (98-107) Carbon Dioxide Level 27 mmol/L (21-32) Anion Gap 7 (6-14) Blood Urea Nitrogen 26 mg/dL (8-26) Creatinine 1.2 mg/dL (0.7-1.3) Estimated GFR (Cockcroft-Gault) 61.6 Glucose Level 146 mg/dL (70-99) Calcium Level 8.2 mg/dL (8.5-10.1) Lipase 4427 U/L (73-393) Review of Systems Review of Systems: patient complains of thirst patient complains of abdominal pain Assessment and Plan Assessmemt and Plan Problems Medical Problems: (1) Abdominal pain Status: Acute (2) HLD (hyperlipidemia) Status: Chronic (3) HTN (hypertension) Status: Chronic (4) Nausea & vomiting Status: Acute (5) Pancreatitis Status: Acute Assessment Idiopathic pancreatitis (lipase level of 79,714 at admission, now 8,410) Abdominal pain N/V Hyperlipidemia HTN Plan NPO except ice chips IV dilaudid for pain IV fluids Trend lipase DVT prophylaxis cardiac monitoring Home meds Labs PT/OT Full code Appreciate GI input Comment Review of Relevant I have reviewed the following items annabella (where applicable) has been applied. Medications: Current Medications Medications (Trade) Dose Ordered Sig/Lizandro Route PRN Reason Start Time Stop Time Status Last Admin Dose Admin Ondansetron HCl (Zofran) 4 mg PRN Q6HRS PRN IV NAUSEA/VOMITING 04/19/19 19:30 04/20/19 13:47 Ipratropium [place] (Atrovent) 0.5 mg RTQID NEB 04/19/19 20:00 04/20/19 12:08 Budesonide (Pulmicort) 0.5 mg RTBID NEB 04/19/19 20:00 04/20/19 09:17 Methylprednisolone Sodium Succinate (SOLU-Medrol 40MG VIAL) 40 mg 1X ONCE IV 04/19/19 19:30 04/19/19 19:43 DC 04/19/19 20:20 SURESH HUNTLEY III DO Apr 20, 2019 13:59
--- NOTE | 2019-04-20 14:25 | NUR ---
Patient had asymptomatic 5 beat VT reported to Dr. Osuna by Julia BALL. See orders.
[2019-04-20 15:00] VITALS: BP 151/106
[2019-04-20] MEDS ORDERED: MAGNESIUM SULFATE 2GM 50 ML IV ONE (15:00)
--- NOTE | 2019-04-20 15:07 | RAD ---
EXAM: Chest, single view. HISTORY: Dyspnea. COMPARISON: None. FINDINGS: A frontal view of the chest is obtained. There is suspected left lower lobe atelectasis or infiltrate. There may be a trace left pleural effusion. There is no pneumothorax. The heart is normal in size. IMPRESSION: Suspected left lower lobe atelectasis or infiltrate and possible trace left pleural effusion Electronically signed by: Milagros Lucas MD (04/20/2019 3:05 PM) [place] [id number]
[2019-04-20 19:49] VITALS: BP 161/97
--- NOTE | 2019-04-20 21:50 | NUR ---
LIZZY Hull responded to call light - pt reported that the thing in his arm had come out. Kurtis went to assess the situation and discovered that pt had pulled out IV, wrapped it in tissue, and put it in a cup. Tissue saturated so IV had been infusing into tissue for a while. Pt has O2 off as well. O2 sats without oxygen on in the mid 80's. O2 replaced. 2253: Pt has O2 off again. pagemilton about pt status. Order given for 1:1 and CIWA started. Initial CIWA negative. Pt still resistant to wearing O2. 2313: Pt refused to have new IV placed. RN informed pt that could not get pain meds without IV as was NPO and couldn't have PO pain pills. Pt stated, "I'll suck it up." O2 was again on floor - RN replaced and informed pt that needed to keep O2 on. Pt reported that he did not take it off, that he moves a lot "kicking legs, getting up, turning in bed." RN instructed pt that those activities do not cause NC to fall off. O2 once again replaced. 0058: Pt refusing constant observation - O2 off again. RN informed pt that because pt pulled out IV and would not leave O2 on that needed to have someone monitor him to make sure O2 stayed on. Pt reports that "allegedly IV was pulled out, allegedly O2 kept coming off." RN again informed him because he would not leave it on, someone had to sit with him to make sure it remained. Pt resistant. Did finally agree to let sitter sit at doorway. Addendum: 04/21/19 at 0549 by MICHI RHODES RN RN 0547: Pt refusing to put O2 on -stated is drying his throat out. Tech with pt instructed pt that pt would be placed on a pulse ox and if O2 level dropped to 87 or below - O2 had to go back on. Pt awake most of shift - getting up and down out of bed - wandering around room/bathroom and fiddling with things. Will continue to monitor.
[2019-04-20] MEDS ORDERED: cloNIDine HCL 0.1 MG TABLET PO PRN (23:00)
[2019-04-20] MEDS ORDERED: LORazepam 1 MG TABLET PO PRN ×2 (23:00)
[2019-04-20] MEDS ORDERED: LORazepam 100 MG in IV NORMAL SALINE 100ML 50 ML IV PRN (23:00)
[2019-04-20] MEDS ORDERED: diphenhydrAMINE 50 MG/ML VIAL IVP PRN (23:00)
[2019-04-20 23:55] VITALS: BP 156/101
[2019-04-21 00:12] LABS: BASE EXCESS ABG 0 mmol/L (-3-3); HCO3 ABG 25 mmol/L (21-28); PCO2 ABG 40 mmHg (35-46); PO2 ABG 52 mmHg (65-108); SAT O2 ABG 88 % (92-99)
[2019-04-21 00:17] LABS: FIO2 ABG 21
[2019-04-21] MEDS: IV NORMAL SALINE 1000ML BAG 1,000 ML IV SCH ×2 (00:51→06:23)
[2019-04-21 02:57] VITALS: BP 156/91
[2019-04-21 04:52] LABS: CALCIUM 8.8 mg/dL (8.5-10.1); CREATININE 1.1 mg/dL (0.7-1.3); GFR 68.1; MAGNESIUM 1.8 mg/dL (1.8-2.4)
[2019-04-21] MEDS: IPRATROPIUM BROMIDE 0.5 MG/2.5 ML NEBU. NEB SCH (05:30)
[2019-04-21] MEDS: BUDESONIDE 0.5 MG/2 ML NEBU. NEB SCH (05:30)
[2019-04-21 07:00] VITALS: BP 165/106
--- NOTE | 2019-04-21 08:58 | NUR ---
Patient refuses IV access. Expressed wishes to go home and wants something to eat. GI notified. Patient was given OK to advance to clear liquids. GI to see patient for possible discharge later today.
[2019-04-21] MEDS ORDERED: MULTIVITAMIN with MINERAL TABLET. PO SCH (09:00)
[2019-04-21] MEDS ORDERED: THIAMINE INJ 100 MG in IV DEXTROSE 5% 50 ML IV SCH (09:00)
[2019-04-21] MEDS ORDERED: FOLIC ACID 1 MG TABLET. PO SCH (09:00)
--- NOTE | 2019-04-21 09:41 | PDOC ---
PULMONARY PROGRESS NOTES Subjective no soa Vitals Vital Signs Date Time Temp Pulse Resp B/P (MAP) Pulse Ox O2 Delivery O2 Flow Rate FiO2 04/21/19 08:00 Nasal Cannula 3.0 04/21/19 07:00 99.6 112 22 165/106 (125) 95 99.6 General: Alert, No acute distress Lungs: Clear Cardiovascular: S1 Abdomen: Soft Neuro Exam: Alert Extremities: No Edema Skin: Warm Labs Laboratory Tests Test 04/20/19 04:00 04/21/19 00:09 04/21/19 04:00 Sodium Level 143 mmol/L (136-145) 145 mmol/L (136-145) Potassium Level 4.6 mmol/L (3.5-5.1) 4.0 mmol/L (3.5-5.1) Chloride Level 109 mmol/L (98-107) 109 mmol/L (98-107) Carbon Dioxide Level 27 mmol/L (21-32) 29 mmol/L (21-32) Anion Gap 7 (6-14) 7 (6-14) Blood Urea Nitrogen 26 mg/dL (8-26) 23 mg/dL (8-26) Creatinine 1.2 mg/dL (0.7-1.3) 1.1 mg/dL (0.7-1.3) Estimated GFR (Cockcroft-Gault) 61.6 68.1 Glucose Level 146 mg/dL (70-99) 110 mg/dL (70-99) Calcium Level 8.2 mg/dL (8.5-10.1) 8.8 mg/dL (8.5-10.1) Magnesium Level 1.3 mg/dL (1.8-2.4) 1.8 mg/dL (1.8-2.4) Lipase 4427 U/L (73-393) 1015 U/L (73-393) O2 Saturation 88 % (92-99) Arterial Blood pH 7.40 (7.35-7.45) Arterial Blood pCO2 at Patient Temp 40 mmHg (35-46) Arterial Blood pO2 at Patient Temp 52 mmHg (65-108) Arterial Blood HCO3 25 mmol/L (21-28) Arterial Blood Base Excess 0 mmol/L (-3-3) FiO2 21 Laboratory Tests Test 04/21/19 00:09 04/21/19 04:00 O2 Saturation 88 % (92-99) Arterial Blood pH 7.40 (7.35-7.45) Arterial Blood pCO2 at Patient Temp 40 mmHg (35-46) Arterial Blood pO2 at Patient Temp 52 mmHg (65-108) Arterial Blood HCO3 25 mmol/L (21-28) Arterial Blood Base Excess 0 mmol/L (-3-3) FiO2 21 Sodium Level 145 mmol/L (136-145) Potassium Level 4.0 mmol/L (3.5-5.1) Chloride Level 109 mmol/L (98-107) Carbon Dioxide Level 29 mmol/L (21-32) Anion Gap 7 (6-14) Blood Urea Nitrogen 23 mg/dL (8-26) Creatinine 1.1 mg/dL (0.7-1.3) Estimated GFR (Cockcroft-Gault) 68.1 Glucose Level 110 mg/dL (70-99) Calcium Level 8.8 mg/dL (8.5-10.1) Magnesium Level 1.8 mg/dL (1.8-2.4) Lipase 1015 U/L (73-393) Medications Active Scripts Medications Dose Route/Sig Max Daily Dose Days Date Category Lisinopril-Hctz 10-12.5 Mg Tab (Lisinopril/Hydrochlorothiazide) 1 Each Tablet 1 Tab PO DAILY 04/10/19 Reported Vitamin D3 (Cholecalciferol (Vitamin D3)) 1,000 Unit Tablet 1 Tab PO DAILY 04/10/19 Reported Hydrocodone-Apap 5-325 (Hydrocodone Bit/Acetaminophen) 1 Each Tablet 03/02/16 Reported Simvastatin 20 Mg Tablet 20 Mg PO DAILY 03/02/16 Reported Anti-Itch (Hydrocortisone) 28 Gm Cream..g. 03/02/16 Reported Claritin (Loratadine) 10 Mg Capsule PO PRN DAILY 03/02/16 Reported Impression . 1. Dyspnea related to acute bronchospasm. Could be related to reactive airway disease. He has no known history of asthma or chronic obstructive pulmonary disease. 2. Acute idiopathic pancreatitis. This is a relapse. He has known history of idiopathic pancreatitis. 3. No history of tobacco use. Plan . 1. Continue with present bronchodilators including Pulmicort. 2. small LLL effusion on chest x-ray .there is no congestive heart failure. 3. Monitor lipase level. 4. wants to go home. ok by me . symbicort ordered as OP ALBERTO RENO MD Apr 21, 2019 09:41
[2019-04-21] MEDS ORDERED: NICOTINE 14MG PATCH. TD PRN (09:45)
--- NOTE | 2019-04-21 10:34 | PDOC ---
[facility] PROGRESS NOTE Chief Complaint Chief Complaint Idiopathic pancreatitis (lipase level of 79,714 at admission, now 8,410) Abdominal pain N/V Hyperlipidemia HTN History of Present Illness History of Present Illness 04/21/19 Pt seen and examined at bedside MANUEL RN Lipase down 1015 today Pt sitting at bedside smiling and expresses desire to eat or drink Pt alert and oriented stating present year and president 04/20/19 Pt seen/examined at bedside Pt talking and without any acute distress 04/19/19 Pt seen/examined at bedside MANUEL pt and Pt states he is feeling much better than when he arrived, but it still finding it hard to get comfortable Vitals/I&O Vitals/I&O: Vital Signs Date Time Temp Pulse Resp B/P (MAP) Pulse Ox O2 Delivery O2 Flow Rate FiO2 04/21/19 08:00 Nasal Cannula 3.0 04/21/19 07:00 99.6 112 22 165/106 (125) 95 99.6 I & O 04/20/19 04/20/19 04/21/19 14:59 22:59 06:59 Intake Total 1000 ml 50 ml 0 ml Balance 1000 ml 50 ml 0 ml Physical Exam General: Alert, Oriented X3, Cooperative, mild distress Heart: Regular rate, Normal S1, Normal S2 Lungs: Clear Abdomen: Other (Abd pain) Extremities: No clubbing, No cyanosis Skin: No rashes, No breakdown Labs Labs: Laboratory Tests Test 04/21/19 00:09 04/21/19 04:00 O2 Saturation 88 % (92-99) Arterial Blood pH 7.40 (7.35-7.45) Arterial Blood pCO2 at Patient Temp 40 mmHg (35-46) Arterial Blood pO2 at Patient Temp 52 mmHg (65-108) Arterial Blood HCO3 25 mmol/L (21-28) Arterial Blood Base Excess 0 mmol/L (-3-3) FiO2 21 Sodium Level 145 mmol/L (136-145) Potassium Level 4.0 mmol/L (3.5-5.1) Chloride Level 109 mmol/L (98-107) Carbon Dioxide Level 29 mmol/L (21-32) Anion Gap 7 (6-14) Blood Urea Nitrogen 23 mg/dL (8-26) Creatinine 1.1 mg/dL (0.7-1.3) Estimated GFR (Cockcroft-Gault) 68.1 Glucose Level 110 mg/dL (70-99) Calcium Level 8.8 mg/dL (8.5-10.1) Magnesium Level 1.8 mg/dL (1.8-2.4) Lipase 1015 U/L (73-393) Review of Systems Review of Systems: Pt denies headache Pt denies vision change Assessment and Plan Assessmemt and Plan Problems Medical Problems: (1) Abdominal pain Status: Acute (2) HLD (hyperlipidemia) Status: Chronic (3) HTN (hypertension) Status: Chronic (4) Nausea & vomiting Status: Acute (5) Pancreatitis Status: Acute Assessment Idiopathic pancreatitis (lipase level of 79,714 at admission, now 1015) Abdominal pain N/V Hyperlipidemia HTN Plan Clear liquid diet and advance diet if able to tolerate Rx given: Percocet 5mg PO PRN IV dilaudid for pain IV fluids Trend lipase DVT prophylaxis cardiac monitoring Home meds Labs PT/OT Full code Pt adamantly insists on discharge- will consider upon input from GI and toleration of diet Comment Review of Relevant I have reviewed the following items annabella (where applicable) has been applied. Medications: Current Medications Medications (Trade) Dose Ordered Sig/Lizandro Route PRN Reason Start Time Stop Time Status Last Admin Dose Admin Magnesium Sulfate 50 ml @ 25 mls/hr 1X ONCE IV 04/20/19 15:00 04/20/19 16:59 DC 04/20/19 15:02 Nicotine (Nicoderm Cq 14mg) 1 patch PRN DAILY PRN TD SMOKING CESSATION 04/21/19 09:45 04/21/19 09:53 SURESH HUNTLEY III DO Apr 21, 2019 10:34
--- NOTE | 2019-04-21 11:15 | DS ---
DATE OF DISCHARGE: 04/21/2019 ADMISSION DIAGNOSIS: Pancreatitis. DISCHARGE DIAGNOSIS: Resolving pancreatitis. CONSULTS: GI. PROCEDURES: None. HOSPITAL COURSE: The patient is a pleasant middle-aged male, who presented with severe pancreatitis with a lipase level of 79,000. We admitted the patient. We gave him bowel rest and consulted GI. Today, he is doing great and wants to go home. We plan to discharge if okay with GI. We have advanced his diet. PHYSICAL EXAMINATION: CARDIOVASCULAR: His heart tones were normal. LUNGS: Clear. ABDOMEN: Soft. DISPOSITION: Home. ACTIVITY: As tolerated. DIET: Low sodium. MEDICATIONS: Please see the MRAD. TOTAL TIME: 34 minutes. SURESH HUNTLEY DO DR: YANN/francois JOB#: [id number] / [id number]
--- NOTE | 2019-04-21 11:43 | PDOC ---
Subjective: Subjective: Feels better, says he's leaving. Tolerated clears. present w/ questions - doesn't want to see him in pain, wonders why MRCP not done. Objective: Objective: Nurse called earlier this morning - IV out, pt refused replacement, refused O2 overnight, has 1:1 obs, wants to go home, primary allowed clear liquids this morning. Office called and said they were paged about discharge. Reviewed chart - okay to DC per pulm. Tmax 100.2 overnight, ongoing tachycardia (112-122 over past 24 hours). Vital Signs: Vital Signs Date Time Temp Pulse Resp B/P (MAP) Pulse Ox O2 Delivery O2 Flow Rate FiO2 04/21/19 08:00 Nasal Cannula 3.0 04/21/19 07:00 99.6 112 22 165/106 (125) 95 99.6 Labs: Laboratory Tests Test 04/21/19 00:09 04/21/19 04:00 O2 Saturation 88 % Arterial Blood pH 7.40 Arterial Blood pCO2 at Patient Temp 40 mmHg Arterial Blood pO2 at Patient Temp 52 mmHg Arterial Blood HCO3 25 mmol/L Arterial Blood Base Excess 0 mmol/L FiO2 21 Sodium Level 145 mmol/L Potassium Level 4.0 mmol/L Chloride Level 109 mmol/L Carbon Dioxide Level 29 mmol/L Anion Gap 7 Blood Urea Nitrogen 23 mg/dL Creatinine 1.1 mg/dL Estimated GFR (Cockcroft-Gault) 68.1 Glucose Level 110 mg/dL Calcium Level 8.8 mg/dL Magnesium Level 1.8 mg/dL Lipase 1015 U/L Imaging: CXR 04/20 IMPRESSION: Suspected left lower lobe atelectasis or infiltrate and possible trace left pleural effusion. PE: GEN: NAD, dressed to leave LUNGS: room air HEART: mild tachycardia ABD: quiet BS, soft, less tender NEURO/PSYCH: A & O �3 A/P: Recurrent pancreatitis - unclear etiology -- 's questions answered to her satisfaction. Reviewed all w/ Dr. Wagner and d/w nurse Graham. Plans to DC as above. Follow-up for outpt MRCP - our office will contact to reschedule. IgG4 pending. QUAN HOWARD Apr 21, 2019 11:43
[2019-04-21 22:12] LABS: IGG1 283 mg/dL (248-810); IGG2 212 mg/dL (130-555); IGG3 62 mg/dL (15-102); IGG4 9 mg/dL (2-96); TOTAL IGG 597 mg/dL (700-1600)
== END 2019-04-21 11:16 | disposition home or self-care (01) | DRG 439 ==
LOC: ER 10:57 → 6 SOUTH 12:09
PROVIDERS: ADMIT Internal Medicine; ATTEND Internal Medicine
DX: K85.00 Idiopathic acute pancreatitis without necrosis or infection (principal); I50.30 Unspecified diastolic (congestive) heart failure; K86.1 Other chronic pancreatitis; E78.00 Pure hypercholesterolemia, unspecified; E78.5 Hyperlipidemia, unspecified; I11.0 Hypertensive heart disease with heart failure; J98.01 Acute bronchospasm; K76.0 Fatty (change of) liver, not elsewhere classified; Z82.49 Family history of ischemic heart disease and other diseases of the circulatory system
CPT/HCPCS: 36415; 36600; 71045; 74177; 80048; 80053; 80061; 80307; 81001; 82787; 82805; 83605; 83690; 83735; 84484; 85025; 93005; 94640; 96361; 96365; 96375; 96376; G0480; J1170; J2060; J2270; J2405; J2543; J2920; J3475; J3490; J7030; J7626; J7644; Q9967; 99285-25; G0378